=== PATIENT | female | born 1975 | race Caucasian/White ===

== ENCOUNTER 2024-05-14 00:02 | Emergency (ER) | payer SELFPAY ==
[~2024-05-14] VITALS: Ht 162.6 cm; Wt 67.0 kg
[~2024-05-14 00:02] MED LIST: NO HOME MEDS
[2024-05-14] MEDS ORDERED: ALUM & MAG HYDROX-SIMETHICONE 30 ML PO ONE (00:15)
[2024-05-14] MEDS ORDERED: KETOROLAC TROMETHAMINE 30 MG/ML SDV IV ONE (00:15)
[2024-05-14] MEDS ORDERED: Pantoprazole Sodium 40 MG VIAL (Protonix) IV STA (00:15)
[2024-05-14] MEDS ORDERED: MORPHINE SULFATE 4 MG/ML VIAL IV STA (00:15)
[2024-05-14] MEDS ORDERED: SODIUM CHLORIDE 0.9% 1,000 ML IV STA (00:15)
[2024-05-14] MEDS ORDERED: LIDOCAINE VISCOUS 2% 15 ML UDC PO ONE (00:15)
[2024-05-14 00:20] VITALS: BP 101/70
[2024-05-14] MEDS ORDERED: PROMETHAZINE HCL 25 MG/ML AMP IV ONE (00:25)
[2024-05-14 01:00] VITALS: BP 96/62
[2024-05-14 01:00] LABS: BASO% 0.4 % (0-3); EOS% 1.9 % (0-8); HEMOGLOBIN 14.2 g/dl (12.0-16.0); IMMATURE GRANULOCYTES 0.3 % (0.0-5.0); LYMPH% 34.7 % (15-41); MEAN CELL VOLUME 86.9 fL CALC (80.0-100.0); MEAN CORPUSCULAR HGB 28.7 pG CALC (26.0-32.0); MONO% 4.3 % (2-13); NEUT# 6.94 thou/uL (2.00-7.15); NEUT% 58.4 % (42-76); RED BLOOD COUNT 4.95 mill/uL (4.20-5.60); RED CELL DISTRI WIDTH 15.6 % (11.5-15.5)
[2024-05-14 01:14] LABS: ALBUMIN 4.2 g/dL (3.2-5.0); ALKALINE PHOSPHATASE 61 u/l (38-126); BILIRUBIN, TOTAL 0.7 mg/dL (0.02-1.3); BUN 14 mg/dL (7-17); BUN/CREATININE RATIO 11 (12-20 (CALC)); CARBON DIOXIDE 22 mmol/l (22-30); CHLORIDE 110 mmol/l (95-108); CREATININE 1.3 mg/dL (0.5-1.0); ESTIMATED GFR 51 ML/MIN (>=90 (CALC)); LIPASE 229 u/l (23-300); SODIUM 140 mmol/l (137-146); TOTAL PROTEIN 7.5 g/dL (6.3-8.2)
[2024-05-14 01:15] LABS: ANION GAP 11 (6-22 (CALC)); POTASSIUM 2.8 mmol/l (3.5-5.1); SGOT/AST 43 u/l (14-36)
[2024-05-14 01:30] VITALS: BP 87/56
[2024-05-14 01:33] VITALS: BP 91/61
[2024-05-14] MEDS ORDERED: D5NS IV SCH (02:55)
[2024-05-14] MEDS ORDERED: KCL IV SCH (02:55)
[2024-05-14] MEDS ORDERED: POTASSIUM CHLORIDE 20 MEQ/TAB PO ONE (02:55)
[2024-05-14] MEDS ORDERED: POTASSIUM CHLO20 ME1 PO (03:12)
[2024-05-14] MEDS ORDERED: PROMETHAZINE HY25 M1 PO (03:12)
[2024-05-14 03:41] VITALS: BP 91/61
== END 2024-05-14 03:46 | disposition home or self-care (01) | DRG 392 ==
LOC: ED 00:02
PROVIDERS: Family Medicine
DX: K52.9 Noninfective gastroenteritis and colitis, unspecified (principal); E87.6 Hypokalemia; F17.200 Nicotine dependence, unspecified, uncomplicated
CPT/HCPCS: J2470; Q9967

== ENCOUNTER 2024-08-12 09:42 | Day surgery (SDC) | payer SELFPAY ==
[~2024-08-12] VITALS: Ht 162.6 cm; Wt 67.6 kg
[~2024-08-12 09:42] MED LIST changes: +ACETAZOLAMIDE500 MG PO; +ALBUTEROL108 MCG/AC IN; +ESTRADIOL1 MG PO; +POTASSIUM CHLO20 ME1 PO; +PROGESTERONE200 MG PO; +PROMETHAZINE HY25 M1 PO
[2024-08-12] MEDS ORDERED: ceFAZolin Sodium 2 GM/VIAL SDV ONE (09:49)
[2024-08-12] MEDS ORDERED: LACTATED RINGER'S 1,000 ML IV ONE ×2 (09:49→12:33)
[2024-08-12] MEDS ORDERED: FAMOTIDINE 10MG/ML 2ML SDV IV ONE (09:49)
[2024-08-12] MEDS ORDERED: SODIUM CHLORIDE 0.9% 100 ML IV ONE (09:49)
[2024-08-12] MEDS ORDERED: LIDOcaine HCl 1% (Local Anesth.) 20 ML VIAL ONE (10:56)
[2024-08-12] MEDS ORDERED: STERILE WATER FOR IRRIGATION 1,000 ML BTL IR ONE (10:56)
[2024-08-12] MEDS ORDERED: SODIUM CHLORIDE 1,000 ML BTL IR ONE (10:56)
[2024-08-12] MEDS ORDERED: PERCOCET 5/325M1 TAB PO (11:34)
[2024-08-12] MEDS ORDERED: HYDROmorphone HCL 2 MG/AMP ONE (12:32)
[2024-08-12 13:11] VITALS: BP 119/73
[2024-08-12] MEDS ORDERED: LIDOCAINE HCL 2% 2ML SDV IV ONE (14:17)
[2024-08-12] MEDS ORDERED: ROCURONIUM BROMIDE 10 MG/ML 5ML VIAL IV ONE (14:17)
[2024-08-12] MEDS ORDERED: PROPOFOL 200 MG/20 ML VIAL IV ONE (14:17)
[2024-08-12] MEDS ORDERED: ACETAMINOPHEN 1,000 MG/100 ML VIAL IV ONE (14:17)
[2024-08-12] MEDS ORDERED: SUCCINYLCHOLINE CHLORIDE 20 MG/ML 10ML VIAL IV ONE (14:17)
[2024-08-12] MEDS ORDERED: KETOROLAC TROMETHAMINE 30 MG/ML SDV IV ONE (14:17)
[2024-08-12] MEDS ORDERED: SUGAMMADEX SODIUM 200 MG/2 ML SDV IV ONE (14:17)
== END 2024-08-12 13:19 | disposition home or self-care (01) | DRG 419 ==
LOC: ORM 09:42
PROVIDERS: ATTEND Surgery
PROC: 0FT44ZZ Resection of Gallbladder, Percutaneous Endoscopic Approach (ICD-10-PCS; principal; 2024-08-12)
DX: K80.10 Calculus of gallbladder with chronic cholecystitis without obstruction (principal)
CPT/HCPCS: J0131; J0690